=== PATIENT | female | born 1960 | race Caucasian/White ===

== ENCOUNTER 2018-07-24 13:12 | Emergency (ER) | payer BC ==
--- NOTE | 2018-07-24 14:28 | ER Document Report ---
ED Medical Screen (RME) - General Chief Complaint: Abdominal Pain Stated Complaint: ABDOMINAL PAIN Time Seen by Provider: 07/24/18 14:22 Mode of Arrival: Medic Information source: Patient Notes: Patient presents emergency department with complaints of epigastric abdominal pain that started this morning at 7:00 when she woke up. Reports she is dry heaving feels nauseated but has not vomited. Has history of gastric bypass. Abdomen is not tender to palpation. She received several doses of Zofran and fentanyl by EMS and reports nothing is helping. I have greeted and performed a rapid initial assessment of this patient. A comprehensive ED assessment and evaluation of the patient, analysis of test results and completion of the medical decision making process will be conducted by additional ED providers. Dictation of this chart was performed using voice recognition software; therefore, there may be some unintended grammatical errors. TRAVEL OUTSIDE OF THE [place] IN LAST 30 DAYS: No - Related Data Allergies/Adverse Reactions: No Known Allergies Allergy (Verified 07/24/18 13:18) Physical Exam - Vital signs Vitals: Pulse Resp BP Pulse Ox 53 L 16 158/87 H 98 07/24/18 13:26 07/24/18 13:26 07/24/18 13:26 07/24/18 13:26 Course - Vital Signs Vital signs: Temp Pulse Resp BP Pulse Ox 53 L 16 158/87 H 98 07/24/18 13:26 07/24/18 13:26 07/24/18 13:26 07/24/18 13:26
[2018-07-24 14:57] LABS: APPEARANCE,URINE SLIGHTLY-CLOUDY; BILIRUBIN,URINE NEGATIVE (NEGATIVE); COLOR,URINE YELLOW; GLUCOSE, URINE 50 mg/dL (NEGATIVE); KETONES,URINE 80 mg/dL (NEGATIVE); LEUKOCYTE ESTERASE,URINE NEGATIVE (NEGATIVE); NITRITE,URINE NEGATIVE (NEGATIVE); PROTEIN,URINE NEGATIVE (NEGATIVE); URINE SPECIFIC GRAVITY 1.016; UROBILINOGEN,URINE NEGATIVE mg/dL (<2.0)
[2018-07-24 15:08] LABS: ABSOLUTE LYMPHOCYTES (AUTO) 1.3 10^3/uL (0.5-4.7); ABSOLUTE MONOCYTES (AUTO) 0.3 10^3/uL (0.1-1.4); ABSOLUTE NEUT (AUTO) 5.5 10^3/uL (1.7-8.2); BASOPHILS % (AUTO) 0.2 % (0-2); EOSINOPHILS % (AUTO) 0.3 % (0-6); HEMATOCRIT 36.5 % (36.0-47.0); HEMOGLOBIN 11.9 g/dL (12.0-15.5); LYMPHOCYTES % (AUTO) 18.2 % (13-45); MEAN CORPUSCULAR HEMOGLOBIN 25.2 pg (27.0-33.4); MEAN CORPUSCULAR HGB CONC 32.6 g/dL (32.0-36.0); MEAN CORPUSCULAR VOLUME 77 fl (80-97); MONOCYTES % (AUTO) 3.9 % (3-13); PLATELET COUNT 355 10^3/uL (150-450); RED BLOOD COUNT 4.71 10^6/uL (3.72-5.28); RED CELL DISTRIBUTION WIDTH 16.3 % (11.5-14.0); SEGMENTED NEUTROPHILS % (AUTO) 77.4 % (42-78); TOTAL CELLS COUNTED % (AUTO) 100 %; WHITE BLOOD COUNT 7.1 10^3/uL (4.0-10.5)
[2018-07-24 15:13] LABS: ALANINE AMINOTRANSFERASE 37 U/L (9-52); ALBUMIN 4.2 g/dL (3.5-5.0); ALKALINE PHOSPHATASE 79 U/L (38-126); ANION GAP 6 (5-19); ASPARTATE AMINO TRANSFERASE 33 U/L (14-36); BILIRUBIN,DIRECT 0.2 mg/dL (0.0-0.4); BILIRUBIN,TOTAL 0.2 mg/dL (0.2-1.3); BLOOD UREA NITROGEN 10 mg/dL (7-20); CALCIUM 9.3 mg/dL (8.4-10.2); CARBON DIOXIDE 28 mmol/L (22-30); CHLORIDE 100 mmol/L (98-107); GLUCOSE 122 mg/dL (75-110); POTASSIUM 4.3 mmol/L (3.6-5.0); SODIUM 134.2 mmol/L (137-145); TOTAL PROTEIN 6.9 g/dL (6.3-8.2)
[2018-07-24] MEDS ORDERED: FAMOTIDINE INJ/PF 20 MG/2 ML SDV IV ONE (15:19)
[2018-07-24] MEDS ORDERED: PROMETHAZINE HCL 25 MG SUPP.RECT PR ONE (15:31)
[2018-07-24] MEDS ORDERED: FENTANYL CITRATE INJ/PF 100 MCG/2 ML AMPUL IV ONE (15:34)
--- NOTE | 2018-07-24 15:39 | ER Document Report ---
ED General - General Chief Complaint: Abdominal Pain Stated Complaint: ABDOMINAL PAIN Time Seen by Provider: 07/24/18 14:22 Primary Care Provider: TERESITA SAGASTUME MD [ACTIVE STAFF] - Follow up as needed Mode of Arrival: Medic TRAVEL OUTSIDE OF THE [place] IN LAST 30 DAYS: No - HPI Notes: Patient is a 58-year-old female that presents to the emergency department for chief complaint of abdominal pain. Patient states shortly after waking up this morning she started to have abdominal pain. She points to her mid epigastrium when asked where the pain is. She states it feels like her "insides are going to come out". She describes it as a burning pain. She denies aggravating factors. She received Zofran 8 mg and fentanyl 50 mcg prior to arrival in the emergency room by EMS. Patient states that treatment gave her minimal improvement. She has not vomited but feels nauseated. She does have a history of gastric bypass 4 years ago and denies ever having complications from it. Patient is in town [place] vacation. She denies recent alcohol and drug use. She denies associated fever, chills, diarrhea, black or bloody stools and hematemesis. She did take her home Protonix this morning Past Medical History: GERD Past Surgical History: Gastric bypass Social History: Denies drugs and alcohol. Reports daily tobacco Family History: Reviewed and noncontributory for presenting illness Allergies: Reviewed, see documented allergy list. REVIEW OF SYSTEMS: CONSTITUTIONAL : No fever No chills No diaphoresis No recent illness EENT: No vision changes No congestion No sore throat CARDIOVASCULAR: No chest pain No palpitations RESPIRATORY: No shortness of breath No cough No difficulty breathing GASTROINTESTINAL: abdominal pain nausea No vomiting No diarrhea GENITOURINARY: No dysuria No hematuria No difficulty urinating MUSCULOSKELETAL: No back pain No leg pain No arm pain SKIN: No rashes No lesions LYMPHATIC: No swollen, enlarged glands. NEUROLOGICAL: No lightheadedness No headache No weakness No paresthesias PSYCHIATRIC: No anxiety No depression PHYSICAL EXAMINATION: Vital signs reviewed, nursing noted reviewed. GENERAL: Well-appearing, well-nourished and in no acute distress. HEAD: Atraumatic, normocephalic. EYES: Eyes appear normal, extraocular movements intact, sclera anicteric, conjunctiva are normal. ENT: nares patent, oropharynx clear without exudates. Moist mucous membranes. NECK: Normal range of motion, supple without lymphadenopathy LUNGS: Breath sounds clear to auscultation bilaterally and equal. No wheezes rales or rhonchi. HEART: Regular rate and rhythm without murmurs ABDOMEN: Soft, nontender, normoactive bowel sounds. No rebound, guarding, or rigidity. No masses appreciated. EXTREMITIES: Nontender, good range of motion, no pitting or edema. NEUROLOGICAL: No focal neurological deficits. Moves all extremities spontaneously Motor and sensory grossly intact on exam. PSYCH: Fidgety, anxious, pressured rapid speech SKIN: Warm, Dry, normal turgor, no rashes or lesions noted on exposed skin - Related Data Allergies/Adverse Reactions: No Known Allergies Allergy (Verified 07/24/18 13:18) Past Medical History - General Information source: Patient - Social History Smoking Status: Never Smoker Chew tobacco use (# tins/day): No Frequency of alcohol use: None Drug Abuse: None Family History: Reviewed & Not Pertinent Patient has suicidal ideation: No Patient has homicidal ideation: No Renal/ Medical History: Denies: Hx Peritoneal Dialysis Physical Exam - Vital signs Vitals: Pulse Resp BP Pulse Ox 53 L 16 158/87 H 98 07/24/18 13:26 07/24/18 13:26 07/24/18 13:26 07/24/18 13:26 Course - Re-evaluation Re-evalutation: 07/24/18 15:37 Vitals reviewed. Nursing notes reviewed. Patient has rapid speech and is very fidgety. She was lying prone on the bed with her feet at the head of the bed when I entered the room. Patient then flipped to lying on her left side and then her right side and then sat up and laid back down on her abdomen with her feet at the head of the bed. She barely sat still to allow me to obtain an abdominal exam. She denied any tenderness with abdominal exam and states that it feels "deeper" than what I could palpate. She has normal vital signs. Patient is requesting pain medication. I discussed giving her a GI cocktail which she states will make her vomit. She has not had any vomiting yet today but does feel nauseated. Patient will be given Phenergan rectally for her continued nausea. She will be given a second dose of fentanyl for further pain management. Because of her history of gastric bypass I am concerned for possible ulcer as a cause of her pain. CT scan will be obtained to evaluate for possible perforation. 07/24/18 17:04 Patient reevaluated. She was asleep when I entered the room. When she woke up she began yelling at me that I have not controlled her pain well enough. When I pointed out that she was sleeping she told me "yeah because you gave me fentanyl". Patients CT scan is unremarkable gastric ulcer, There is no sign of perforated gastric ulcer. repeat abdominal exam is still soft without any focal tenderness. She still telling me that the pain is deep inside. I tried to explain that she may have some gastritis or peptic ulcer which would not appear on testing. Patient is now agreeing to GI cocktail. She is concerned that she will not be able to tolerate any oral intake and will continue to vomit. Will provide patient with GI cocktail and p.o. challenge. Laboratory 07/24/18 07/24/18 07/24/18 14:37 14:37 14:37 WBC 7.1 RBC 4.71 Hgb 11.9 L Hct 36.5 MCV 77 L MCH 25.2 L MCHC 32.6 RDW 16.3 H Plt Count 355 Seg Neutrophils % 77.4 Lymphocytes % 18.2 Monocytes % 3.9 Eosinophils % 0.3 Basophils % 0.2 Absolute Neutrophils 5.5 Absolute Lymphocytes 1.3 Absolute Monocytes 0.3 Absolute Eosinophils 0.0 Absolute Basophils 0.0 Sodium 134.2 L Potassium 4.3 Chloride 100 Carbon Dioxide 28 Anion Gap 6 BUN 10 Creatinine 0.50 L Est GFR ( Amer) > 60 Est GFR (Non-Af Amer) > 60 Glucose 122 H Calcium 9.3 Total Bilirubin 0.2 Direct Bilirubin 0.2 Neonat Total Bilirubin Not Reportable Neonat Direct Bilirubin Not Reportable Neonat Indirect Bili Not Reportable AST 33 ALT 37 Alkaline Phosphatase 79 Total Protein 6.9 Albumin 4.2 Lipase 74.0 Urine Color YELLOW Urine Appearance SLIGHTLY-CLOUDY Urine pH 7.0 Ur Specific [place] 1.016 Urine Protein NEGATIVE Urine Glucose (UA) 50 H Urine Ketones 80 H Urine Blood NEGATIVE Urine Nitrite NEGATIVE Urine Bilirubin NEGATIVE Urine Urobilinogen NEGATIVE Ur Leukocyte Esterase NEGATIVE Urine WBC (Auto) 2 Urine RBC (Auto) 4 U Hyaline Cast (Auto) 1 Squamous Epi Cells Auto 1 Urine Mucus (Auto) RARE Urine Ascorbic Acid 40 H Urine Opiates Screen Urine Methadone Screen Ur Barbiturates Screen Ur Phencyclidine Scrn Ur Amphetamines Screen U Benzodiazepines Scrn Urine Cocaine Screen U Marijuana (THC) Screen Serum Alcohol 07/24/18 07/24/18 14:37 14:37 WBC RBC Hgb Hct MCV MCH MCHC RDW Plt Count Seg Neutrophils % Lymphocytes % Monocytes % Eosinophils % Basophils % Absolute Neutrophils Absolute Lymphocytes Absolute Monocytes Absolute Eosinophils Absolute Basophils Sodium Potassium Chloride Carbon Dioxide Anion Gap BUN Creatinine Est GFR ( Amer) Est GFR (Non-Af Amer) Glucose Calcium Total Bilirubin Direct Bilirubin Neonat Total Bilirubin Neonat Direct Bilirubin Neonat Indirect Bili AST ALT Alkaline Phosphatase Total Protein Albumin Lipase Urine Color Urine Appearance Urine pH Ur Specific [place] Urine Protein Urine Glucose (UA) Urine Ketones Urine Blood Urine Nitrite Urine Bilirubin Urine Urobilinogen Ur Leukocyte Esterase Urine WBC (Auto) Urine RBC (Auto) U Hyaline Cast (Auto) Squamous Epi Cells Auto Urine Mucus (Auto) Urine Ascorbic Acid Urine Opiates Screen NEGATIVE Urine Methadone Screen NEGATIVE Ur Barbiturates Screen NEGATIVE Ur Phencyclidine Scrn NEGATIVE Ur Amphetamines Screen NEGATIVE U Benzodiazepines Scrn NEGATIVE Urine Cocaine Screen NEGATIVE U Marijuana (THC) Screen UNCONFIRMED POSITIVE Serum Alcohol < 10 Abdomen/Pelvis CT 07/24/18 15:19 IMPRESSION: NO SIGNIFICANT OR ACUTE FINDING IN THE ABDOMEN OR PELVIS ON CT SCAN WITH IV CONTRAST. 07/24/18 17:54 Patient re-evaluated after GI cocktail and states that her symptoms have completely resolved. I do suspect a small peptic ulcer versus gastritis. Patient is already taking Protonix. She will be given sucralfate for further symptom medic management. She has tolerated oral intake and has not had any further vomiting. She will be discharged home in stable condition - Vital Signs Vital signs: Temp Pulse Resp BP Pulse Ox 53 L 16 158/87 H 98 07/24/18 13:26 07/24/18 13:26 07/24/18 13:26 07/24/18 13:26 - Laboratory Result Diagrams: 07/24/18 14:37 07/24/18 14:37 Laboratory results interpreted by me: 07/24/18 07/24/18 07/24/18 14:37 14:37 14:37 Hgb 11.9 L MCV 77 L MCH 25.2 L RDW 16.3 H Sodium 134.2 L Creatinine 0.50 L Glucose 122 H Urine Glucose (UA) 50 H Urine Ketones 80 H Urine Ascorbic Acid 40 H Discharge - Discharge Clinical Impression: Abdominal pain Qualifiers: Abdominal location: epigastric Qualified Code(s): R10.13 - Epigastric pain Condition: Stable Disposition: HOME, SELF-CARE Instructions: Abdominal Pain ([facility]) Additional Instructions: Please return to the emergency department if you have any worsening, or concern of your symptoms. Please return to the emergency department if you develop chest pain, difficulty breathing, severe abdominal pain, or ongoing vomiting. Please follow-up with your primary care physician in 2-3 days and any other recommended physicians. If prescribed, take all medications as directed. If you have any questions or concerns do not hesitate to return the emergency department for evaluation. Prescriptions: Sucralfate [Carafate] 1 gm PO BID 7 Days oral.susp Referrals: TERESITA SAGASTUME MD [ACTIVE STAFF] - Follow up as needed
[2018-07-24 16:39] LABS: URINE AMPHETAMINES SCREEN NEGATIVE; URINE BARBITURATES SCREEN NEGATIVE; URINE BENZODIAZEPINES SCREEN NEGATIVE; URINE COCAINE SCREEN NEGATIVE; URINE MARIJUANA (THC) SCREEN UNCONFIRMED POSITIVE; URINE METHADONE SCREEN NEGATIVE; URINE PHENCYCLIDINE SCREEN NEGATIVE
--- NOTE | 2018-07-24 16:40 | RADIOLOGY REPORT (SQ) ---
EXAM DESCRIPTION: CT ABD/PELVIS WITH IV ONLY COMPLETED DATE/TIME: 07/24/2018 4:22 pm REASON FOR STUDY: abdominal pain COMPARISON: None. TECHNIQUE: CT scan of the abdomen and pelvis performed using helical scanning technique with dynamic intravenous contrast injection. No oral contrast. Images reviewed with lung, soft tissue, and bone windows. Reconstructed coronal and sagittal MPR images reviewed. Delayed images for evaluation of the urinary system also acquired. All images stored on PACS. All CT scanners at this facility use dose modulation, iterative reconstruction, and/or weight based d osing when appropriate to reduce radiation dose to as low as reasonably achievable (ALARA). [facility]: Dose Right [facility]: CareDose [facility]: Dose Right [facility]: Teradose 4D [facility]: PrimeSense CONTRAST TYPE AND DOSE: contrast/concentration: Isovue 350.00 mg/ml; Total Contrast Delivered: 64.0 ml; Total Saline Delivered: 65.0 ml 64 mL IV of Omnipaque 350- low osmolar. RENAL FUNCTION: BUN 10 creatinine 0.5 RADIATION DOSE: CT Rad equipment meets quality standard of care and radiation dose reduction techniq ues were employed. CTDIvol: 4.9 - 5.7 mGy. DLP: 494 mGy-cm.. LIMITATIONS: None. FINDINGS: LOWER CHEST: No significant findings. No nodules or infiltrates. LIVER: Normal size. No masses. No dilated ducts. SPLEEN: Normal size. No focal lesions. PANCREAS: No masses. No significant calcifications. No adjacent inflammation or peripancreatic fluid collections. Pancreatic duct not dilated. GALLBLADDER: No identified stones by CT criteria. No inflammatory changes to suggest cholecystitis. ADRENAL GLANDS: No significant masses or asymmetry. RIGHT KIDNEY AND URETER: No solid masses. No significant calcifications. No hydronephrosis or hyd roureter. LEFT KIDNEY AND URETER: No solid masses. No significant calcifications. No hydronephrosis or hydr oureter. AORTA AND VESSELS: No aneurysm. No dissection. Mild scattered calcified plaque. RETROPERITONEUM: No retroperitoneal adenopathy, hemorrhage or masses. BOWEL AND PERITONEAL CAVITY: Postsurgical changes of the stomach compress small small bowel from prio r gastric bypass surgery. No dilated loops of bowel. No intraperitoneal free fluid or free air. No peritoneal mass. APPENDIX: Not visualized. PELVIS: No mass. No free fluid. Normal bladder. ABDOMINAL WALL: No masses. No hernias. BONES: No acute finding. Degenerative disc disease of lumbar spine, most pronounced at L3-L4. OTHER: No other significant finding. IMPRESSION: NO SIGNIFICANT OR ACUTE FINDING IN THE ABDOMEN OR PELVIS ON CT SCAN WITH IV CONTRAST. TECHNICAL DOCUMENTATION: JOB ID: [id number] Quality ID # [id number]: Final reports with documentation of one or more dose reduction techniques (e.g., Au tomated exposure control, adjustment of the mA and/or kV according to patient size, use of iterative reconstruction technique) 2010 [employer]- All Rights Reserved Reading location - IP/workstation name: [email or web address]
[2018-07-24] MEDS ORDERED: METOCLOPRAMIDE HCL ORAL SOLN 10 MG/10 ML UDCUP PO ONE (17:03)
[2018-07-24] MEDS ORDERED: LIDOCAINE 2% VISCOUS SOLN 20 ML UDCUP PO ONE (17:03)
[2018-07-24] MEDS ORDERED: MAG HYDROX/AL HYDROX/SIMETH SUSP 30 ML UDCUP PO ONE (17:03)
[2018-07-24 18:18] VITALS: BP 134/69
== END 2018-07-24 18:20 | disposition home or self-care (01) ==
LOC: ER 13:12
DX: R10.13 Epigastric pain (principal); R11.0 Nausea; K21.9 Gastro-esophageal reflux disease without esophagitis; Z79.899 Other long term (current) drug therapy; Z98.84 Bariatric surgery status
CPT/HCPCS: 99284; 96374; 36415; 80307 ×2; 83690; 85025; 80053; 81001; 74177; J3010; J3490 ×2